=== PATIENT | female | born 1955 | race Asian ===

== ENCOUNTER 2018-08-02 18:17 | Emergency (ER) | payer OTHER ==
[~2018-08-02] VITALS: Ht 160 cm; Wt 59.0 kg
[2018-08-02] MEDS ORDERED: NICOTINE GUM2 MG BC (18:28)
[2018-08-02] MEDS ORDERED: ZYPREXA5 MG ORAL (18:28)
[2018-08-02] MEDS ORDERED: BENADRYL ALLERG25 M1 PO (18:28)
[2018-08-02] MEDS ORDERED: VENLAFAXINE HCL75 MG ORAL (18:28)
[2018-08-02] MEDS ORDERED: GABAPENTIN300 MG ORAL (18:28)
[2018-08-02] MEDS ORDERED: HALDOL5 MG ORAL (18:28)
--- NOTE | 2018-08-02 18:40 | Emergency Room Report ---
History of Present Illness General Chief Complaint: Multiple Trauma/Fall Source: Patient, Medical Record, EMS Present Illness HPI 63-year-old female, coming from prison, dementia, schizophrenia, presenting with fall, also found by EMS to be tachycardic and diaphoretic. Patient is awake, oriented to person and place. But does not know the time and does not know why she is here. She is confused. She did state that she fell but she does not recall when. She is not complaining of anything at this time although she does appear to be diaphoretic. Denies any actual chest pain or shortness of breath at this time Allergies: Coded Allergies: PENICILLINS (Verified Allergy, Unknown, 08/02/18) Patient History Past Medical History: see triage record Past Surgical History: none Pertinent Family History: none Reviewed Nursing Documentation: PMH: Agreed; PSxH: Agreed Nursing Documentation-PMH Past Medical History: No History, Except For History Of Psychiatric Problem: Yes - SCHIZOPHRENIA Hx Neurological Problems: Yes - DEMENTIA Review of Systems All Other Systems: negative except mentioned in HPI Physical Exam Vital Signs Date Time Temp Pulse Resp B/P (MAP) Pulse Ox O2 Delivery O2 Flow Rate FiO2 08/02/18 18:21 98.8 127 20 150/96 94 Room Air 98.8 Sp02 EP Interpretation: reviewed, normal General Appearance: mild distress, other - Appears diaphoretic, confused, however not in pain Head: normocephalic - Ecchymosis to right frontal scalp Eyes: bilateral eye normal inspection, bilateral eye PERRL, bilateral eye EOMI ENT: normal ENT inspection, normal pharynx, normal voice, moist mucus membranes Neck: normal inspection, full range of motion, supple Respiratory: normal inspection, lungs clear, normal breath sounds, no respiratory distress, no retraction, no wheezing, speaking full sentences, chest symmetrical Cardiovascular #1: normal capillary refill, tachycardia Cardiovascular #2: 2+ radial (R), 2+ radial (L) Gastrointestinal: normal inspection, non tender, soft, non-distended, no guarding Musculoskeletal: other - Ecchymosis noted to by about bilateral knees, full range of motion of knees, able to bend without any issue Neurologic: other - Awake alert, confused, be moving all 4 x-rays spontaneously and following commands Psychiatric: other - Confused Skin: normal inspection, normal color, no rash, warm/dry, well hydrated, normal turgor Procedures Critical Care Time Critical Care Time 40 minutes of CC time 63-year-old female with sepsis related to UTI, also found to have slight elevation of troponin, record very close cardiopulmonary monitoring Anticipate admission to Tele vs. [facility] CC time also includes review of labs, review of EMR, discussion with family and paperwork from SNF, d/w hospitalist CC could include dosing of pressors, additional Abx CC time does not include procedures Medical Decision Making Diagnostic Impression: Primary Impression: Fall Additional Impressions: Closed head injury Thyroid nodule Sepsis Troponin level elevated UTI (urinary tract infection) ER Course 63-year-old female, fell, also found to be tachycardic diaphoretic DDX: Rule out intracranial bleed, C-spine fracture, patient also diaphoretic and tachycardic, dehydration, sepsis Plan: Obtain labs, ua, EKG, CXR CT head and CT C-spine ER course: Patient was given IV fluids Ceftriaxone was given for possible UTI, patient having urgency but unable to urinate Vanco also empirically added Patient continues to be tachycardic, heart rate 110, also hypertensive She's never complaining of any chest pain or shortness of breath Troponin is noted to be slightly elevated, unclear could be demand ischemia, but heparin is given as well. There are no ischemic changes on the EKG Disposition: Patient is to be Transferred to outside Hospital due to insurance DW Dr Almodovar Please note that this Emergency Department Report was dictated using [employer] leader technology software, occasionally this can lead to erroneous entry secondary to interpretation by the dictation equipment. EKG Diagnostic Results EP Interpretation: Yes Rate: Tachycardic Rhythm: NSR ST Segments: No acute changes ASA given to patient: No Rhythm Strip EP Interpretation: Yes Rate: 110 Rhythm: NSR, no PVCs, no ectopy Chest X-ray CXR: Ordered: Yes 1 view Indication:diaphoresis EP interpretation: Yes Interpretation: No consolidation, no effusion, no PTX, no acute cardiopulmonary disease Impression: No acute disease Electronically signed by Ann-Marie Bynum MD Laboratory Tests Test 08/02/18 18:20 08/02/18 18:29 White Blood Count 21.9 K/UL (4.8-10.8) H Red Blood Count 5.08 M/UL (4.20-5.40) Hemoglobin 16.4 G/DL (12.0-16.0) H Hematocrit 47.1 % (37.0-47.0) H Mean Corpuscular Volume 93 FL (80-99) Mean Corpuscular Hemoglobin 32.3 PG (27.0-31.0) H Mean Corpuscular Hemoglobin Concent 34.8 G/DL (32.0-36.0) Red Cell Distribution Width 11.5 % (11.6-14.8) L Platelet Count 220 K/UL (150-450) Mean Platelet Volume 6.9 FL (6.5-10.1) Neutrophils (%) (Auto) % (45.0-75.0) Lymphocytes (%) (Auto) % (20.0-45.0) Monocytes (%) (Auto) % (1.0-10.0) Eosinophils (%) (Auto) % (0.0-3.0) Basophils (%) (Auto) % (0.0-2.0) Differential Total Cells Counted 100 Neutrophils % (Manual) 91 % (45-75) H Lymphocytes % (Manual) 5 % (20-45) L Monocytes % (Manual) 4 % (1-10) Eosinophils % (Manual) 0 % (0-3) Basophils % (Manual) 0 % (0-2) Band Neutrophils 0 % (0-8) Platelet Estimate Adequate Platelet Morphology Normal Red Blood Cell Morphology Normal Sodium Level 144 MMOL/L (136-145) Potassium Level 3.3 MMOL/L (3.5-5.1) L Chloride Level 110 MMOL/L (98-107) H Carbon Dioxide Level 21 MMOL/L (21-32) Anion Gap 14 mmol/L (5-15) Blood Urea Nitrogen 20 mg/dL (7-18) H Creatinine 0.7 MG/DL (0.55-1.30) Estimate Glomerular Filtration Rate > 60 mL/min (>60) Glucose Level 107 MG/DL (74-106) H Lactic Acid Level 4.00 mmol/L (0.4-2.0) H Calcium Level 8.0 MG/DL (8.5-10.1) L Total Bilirubin 0.5 MG/DL (0.2-1.0) Aspartate Amino Transferase (AST) 217 U/L (15-37) H Alanine Aminotransferase (ALT) 81 U/L (12-78) H Alkaline Phosphatase 70 U/L (46-116) Troponin I 0.453 ng/mL (0.000-0.056) Pro-B-Type Natriuretic Peptide 1197 pg/mL (0-125) H Total Protein 6.0 G/DL (6.4-8.2) L Albumin 3.4 G/DL (3.4-5.0) Globulin 2.6 g/dL Albumin/Globulin Ratio 1.3 (1.0-2.7) Urine Color Pale yellow Urine Appearance Clear Urine pH 7 (4.5-8.0) Urine Specific [place] 1.010 (1.005-1.035) Urine Protein 1+ (NEGATIVE) H Urine Glucose (UA) Negative (NEGATIVE) Urine Ketones 1+ (NEGATIVE) H Urine Blood 5+ (NEGATIVE) H Urine Nitrite Negative (NEGATIVE) Urine Bilirubin Negative (NEGATIVE) Urine Urobilinogen Normal MG/DL (0.0-1.0) Urine Leukocyte Esterase Negative (NEGATIVE) Urine RBC 2-4 /HPF (0 - 2) H Urine WBC 0-2 /HPF (0 - 2) Urine Squamous Epithelial Cells None /LPF (NONE/OCC) Urine Bacteria Occasional /HPF (NONE) CT/MRI/US Diagnostic Results CT/MRI/US Diagnostic Results #1: Imaging Test Ordered: CT C SPINE Impression CT C SPINE: Comparison: None available Cervical vertebral height and alignment are within normal limits. No evidence of acute cervical fracture or subluxation. No abnormal prevertebral soft tissue swelling. Mild multilevel cervical disc disease and spondylosis. Multiple bilateral thyroid nodules, largest of which measuring approximately 1.1 cm in the right thyroid lobe. CT/MRI/US Diagnostic Results #2: Imaging Test Ordered: CT HEAD Impression IMPRESSION: No evidence of acute intracranial abnormality. Last Vital Signs Date Time Temp Pulse Resp B/P (MAP) Pulse Ox O2 Delivery O2 Flow Rate FiO2 08/02/18 18:21 98.8 127 20 150/96 94 Room Air 98.8 Disposition: ADMITTED INPATIENT Condition: Ann-Marie Marcelino M.D. Aug 02, 2018 18:40
[2018-08-02 18:52] LABS: HEMATOCRIT 47.1 % (37.0-47.0); HEMOGLOBIN 16.4 G/DL (12.0-16.0); MEAN CORPUSCULAR VOLUME 93 FL (80-99); PLATELET COUNT 220 K/UL (150-450); RED BLOOD COUNT 5.08 M/UL (4.20-5.40); RED CELL DISTRIBUTION WIDTH 11.5 % (11.6-14.8); WHITE BLOOD COUNT 21.9 K/UL (4.8-10.8)
[2018-08-02 19:04] LABS: ANION GAP 14 mmol/L (5-15); BLOOD UREA NITROGEN 20 mg/dL (7-18); CARBON DIOXIDE 21 MMOL/L (21-32); CHLORIDE 110 MMOL/L (98-107); CREATININE 0.7 MG/DL (0.55-1.30); POTASSIUM 3.3 MMOL/L (3.5-5.1); SODIUM 144 MMOL/L (136-145)
[2018-08-02 19:15] LABS: ALANINE AMINOTRANSFERASE 81 U/L (12-78); ALBUMIN 3.4 G/DL (3.4-5.0); ALBUMIN/GLOBULIN RATIO 1.3 (1.0-2.7); ALKALINE PHOSPHATASE 70 U/L (46-116); ASPARTATE AMINO TRANSFERASE 217 U/L (15-37); BILIRUBIN,TOTAL 0.5 MG/DL (0.2-1.0)
[2018-08-02 19:40] VITALS: BP 150/96
[2018-08-02] MEDS ORDERED: cefTRIAXone 1 GM in NS 55 ML IVPB ONE (20:30)
[2018-08-02 20:47] LABS: APPEARANCE,URINE CLEAR; BILIRUBIN, URINE NEGATIVE (NEGATIVE); COLOR,URINE PALE YELLOW; GLUCOSE, URINE (UA) NEGATIVE (NEGATIVE); KETONES,URINE 1+ (NEGATIVE); LEUKOCYTE ESTERASE ,URINE NEGATIVE (NEGATIVE); NITRITE,URINE NEGATIVE (NEGATIVE); PH,URINE 7 (4.5-8.0); PROTEIN,URINE 1+ (NEGATIVE); UROBILINOGEN,URINE NORMAL MG/DL (0.0-1.0)
[2018-08-02] MEDS ORDERED: Heparin 5000 units/ml inj IV ONE (21:00)
[2018-08-02] MEDS ORDERED: Vancomycin 1250mg/D5W 250ml 250 ML IVPB ONE (21:15)
[2018-08-02 22:30] VITALS: BP 129/91
[2018-08-03 00:15] VITALS: BP 155/101
--- NOTE | 2018-08-03 11:47 | Diagnostic Imaging Report ---
Indication: Headache Technique: Contiguous 5 mm thick transaxial imaging of the head obtained in a Siemens Sensation [address] scanner. Soft tissue and bone windows generated. Automatic Exposure Control was utilized. Total Dose length Product (DLP): [address] Dose Index Volume (CTDIvol): 70.38, 12.35 mGy Comparison: none Findings: There is mild prominence of the ventricles, basal cisterns, and cerebral sulci consistent with atrophy. Mild, nonspecific, white matter hypoattenuation is noted throughout the brain consistent with chronic small vessel disease. There is no midline shift, edema, acute hemorrhage, mass effect, or abnormal extra-axial fluid collections. Bones and extra osseous soft tissues are unremarkable. Impression: No acute intracranial bleed, mass effect or edema. Mild atrophy of the brain. Nonspecific white matter hypoattenuation probably due to chronic small vessel disease. [facility] has communicated the preliminary results to the Emergency Department. Their findings are largely concordant with this report. The CT scanner at [facility] is accredited by the [employer] and the scans are performed using dose optimization techniques as appropriate to a performed exam including Automatic Exposure control.
--- NOTE | 2018-08-03 11:49 | Diagnostic Imaging Report ---
Indication: Neck pain and trauma Technique: Continuous helical imaging of the cervical spine was obtained transaxially from the skull base to the upper thoracic spine. 2-D coronal and sagittal reformatted images were obtained. Automatic Exposure Control was utilized. Total Dose length Product (DLP): Refer to CT head mGycm CT Dose Index Volume (CTDIvol): Refer to CT head mGy Comparison: None Findings: There is no acute fracture or malalignment identified. There is no soft tissue swelling identified. Mild uncovertebral arthritis is demonstrated at C5-6 and C6-7. The intervertebral discs at these 2 levels show moderate narrowing. Other levels show mild narrowing. Thyroid nodules are incidentally noted bilaterally. There may be mild thickening of the wall the esophagus. Correlate clinically Impression: No acute injury Mild spondylosis Thyroid nodules. Query thickening of the esophageal wall. Correlate clinically. [facility] has communicated the preliminary results to the Emergency Department. Their findings are largely concordant with this report. The CT scanner at [facility] is accredited by the [employer] and the scans are performed using dose optimization techniques as appropriate to a performed exam including Automatic Exposure control.
--- NOTE | 2018-08-03 12:09 | Diagnostic Imaging Report ---
Indication: Chest pain Comparison: None A single view chest radiograph was obtained. Findings: Cardiomediastinal appearance is within normal limits for age. The lungs are clear. Hiatal hernia noted. Pulmonary vascularity is appropriate. The diaphragmatic contour is smooth and costophrenic angles are sharp. No pleural effusions are identified. The bones are osteopenic.. Impression: No acute findings Hiatal hernia
--- NOTE | 2018-08-03 15:15 | Cardiology Report ---
APPROVED REPORT EKG Measurement Heart [id number] Sinus tachycardia Possible Left atrial enlargement Pulmonary disease pattern Left anterior fascicular block Abnormal ECG
== END 2018-08-03 00:15 | disposition short-term general hospital (02) ==
LOC: EDBD 18:17 → EMR 18:52
DX: S09.8XXA Other specified injuries of head, initial encounter (principal); S00.03XA Contusion of scalp, initial encounter; W19.XXXA Unspecified fall, initial encounter; Y92.199 Unspecified place in other specified residential institution as the place of occurrence of the external cause; A41.9 Sepsis, unspecified organism; N39.0 Urinary tract infection, site not specified; E04.1 Nontoxic single thyroid nodule; R79.89 Other specified abnormal findings of blood chemistry; F03.90 Unspecified dementia, unspecified severity, without behavioral disturbance, psychotic disturbance, mood disturbance, and anxiety; F20.9 Schizophrenia, unspecified; Z88.0 Allergy status to penicillin
CPT/HCPCS: 36415; 70450; 71045; 72125; 80053; 81003; 83605; 83880; 84484; 85007; 85025; 85610; 85730; 87040; 93005; 96361; 96365; 96367; 96375; 99291; J0696; J1644; J3370